=== PATIENT | male | born 1980 | race Caucasian/White ===

== ENCOUNTER 2017-11-30 12:16 | Emergency (ER) | payer OTHER ==
[~2017-11-30] VITALS: Ht 188 cm; Wt 81.7 kg
[2017-11-30] MEDS ORDERED: ADDERALL 20 MG20 M1 PO (12:28)
[2017-11-30 13:04] VITALS: BP 123/73
== END 2017-11-30 13:05 | disposition home or self-care (01) ==
LOC: M.ERS 12:16
DX: S61.011A Laceration without foreign body of right thumb without damage to nail, initial encounter (principal); W26.8XXA Contact with other sharp object(s), not elsewhere classified, initial encounter; Y93.89 Activity, other specified; Y92.89 Other specified places as the place of occurrence of the external cause; Y99.8 Other external cause status